=== PATIENT | male | born 1985 | race American Indian/Alaskan Native ===

== ENCOUNTER 2020-02-09 15:55 | Emergency (ER) | payer OTHER ==
--- NOTE | 2020-02-09 17:21 | Emergency Department Report ---
ED Abdominal Pain HPI - General Chief Complaint: Abdominal Pain Stated Complaint: N/V/D RT FLANK PAIN PUI?: Yes Time Seen by Provider: 02/09/20 17:14 Source: patient, EMS Mode of arrival: Ambulatory Limitations: No Limitations - History of Present Illness Initial Comments: Patient is a 34-year-old male that presents emergency room with complaints of nausea vomiting and abdominal pain. Patient states he has had abdominal pain and nausea vomiting for 10 days. Patient states today he developed right flank pain that was a 10 out of 10. Patient states the pain is worse with movement better with rest. Patient states 10 days ago he was diagnosed with COVID-19. Patient states he was tested at [facility]. Patient denies shortness of breath. Patient states he still having fevers at times. Patient complains of chills and body aches. Patient denies blood in his vomitus. Patient denies diarrhea and blood in his stool. Denies chest pain. MD Complaint: abdominal pain, flank pain -: Gradual Location: diffuse, R flank Radiation: none Migration to: no migration Severity: severe Severity scale (0 -10): 10 Quality: stabbing Consistency: intermittent Improves With: rest Worsens With: movement Associated Symptoms: nausea, vomiting, fever, chills. denies: diarrhea, constipation, dysuria, hematemesis, hematochezia, melena, hematuria, anorexia - Related Data Previous Rx's Medication Instructions Recorded Last Taken Type Azithromycin [Zithromax Tri-Ernie] 500 mg PO DAILY 3 Days #3 tablet 02/09/20 Unknown Rx Ondansetron [Zofran Odt] 4 mg PO Q4HR PRN #15 tab.rapdis 02/09/20 Unknown Rx methylPREDNISolone [Medrol 4MG 4 mg PO DAILY 6 Days #1 pack 02/09/20 Unknown Rx DOSEPAK (21 tabs)] Allergies Allergy/AdvReac Type Severity Reaction Status Date / Time No Known Allergies Allergy Unverified 02/09/20 17:24 ED Review of Systems ROS: Stated complaint: N/V/D RT FLANK PAIN Other details as noted in HPI Constitutional: chills, fever, malaise Eyes: denies: eye pain, eye discharge, vision change ENT: denies: ear pain, throat pain Respiratory: denies: cough, shortness of breath, wheezing Cardiovascular: denies: chest pain, palpitations Endocrine: no symptoms reported Gastrointestinal: abdominal pain, nausea, vomiting. denies: diarrhea Genitourinary: denies: urgency, dysuria Musculoskeletal: denies: back pain, joint swelling, arthralgia Skin: denies: rash, lesions Neurological: denies: headache, weakness, paresthesias Psychiatric: denies: anxiety, depression Hematological/Lymphatic: denies: easy bleeding, easy bruising ED Past Medical Hx - Past Medical History Previous Medical History?: No - Surgical History Past Surgical History?: No - Family History Family history: no significant - Social History Smoking Status: Never Smoker Substance Use Type: None - Medications Home Medications: Home Medications Medication Instructions Recorded Confirmed Last Taken Type Azithromycin [Zithromax Tri-Ernie] 500 mg PO DAILY 3 Days #3 tablet 02/09/20 Unknown Rx Ondansetron [Zofran Odt] 4 mg PO Q4HR PRN #15 tab.rapdis 02/09/20 Unknown Rx methylPREDNISolone [Medrol 4MG 4 mg PO DAILY 6 Days #1 pack 02/09/20 Unknown Rx DOSEPAK (21 tabs)] ED Physical Exam - General Limitations: No Limitations General appearance: alert, in no apparent distress - Head Head exam: Present: atraumatic, normocephalic - Eye Eye exam: Present: normal appearance - ENT ENT exam: Present: mucous membranes moist - Neck Neck exam: Present: normal inspection - Respiratory Respiratory exam: Present: normal lung sounds bilaterally. Absent: respiratory distress, wheezes, rales - Cardiovascular Cardiovascular Exam: Present: regular rate, normal rhythm. Absent: systolic murmur, diastolic murmur, rubs, gallop - GI/Abdominal GI/Abdominal exam: Present: soft, tenderness (Generalized abdominal tenderness. Right flank tenderness), normal bowel sounds - Rectal Rectal exam: Present: deferred - Extremities Exam Extremities exam: Present: normal inspection - Back Exam Back exam: Present: normal inspection - Neurological Exam Neurological exam: Present: alert, oriented X3 - Psychiatric Psychiatric exam: Present: normal affect, normal mood - Skin Skin exam: Present: warm, dry, intact, normal color. Absent: rash ED Course Vital Signs 02/09/20 02/09/20 02/09/20 16:49 20:39 20:45 Pulse Rate 110 H 99 H Respiratory 19 31 H 29 H Rate Blood Pressure 143/81 128/69 O2 Sat by Pulse 96 96 Oximetry 02/09/20 02/09/20 02/09/20 21:01 21:15 21:31 Pulse Rate 95 H 93 H 93 H Respiratory 27 H 29 H 24 Rate Blood Pressure 135/82 121/73 127/57 O2 Sat by Pulse 98 97 98 Oximetry - Reevaluation(s) Reevaluation #1: I ambulated the patient with a pulse ox and patient's saturations stayed stable at 97%. Patient was 98% prior to ambulation. Patient reconnected to the threat monitoring analyst. Patient states his pain is better. Patient states he is feeling a little bit better. Patient denies nausea and vomiting while in the ER. Patient will receive another liter of fluids and prepared for discharge. 02/09/20 20:15 Reevaluation #2: Patient states he is feeling much better. Patient is ready for discharge. I discussed all results and clinical findings with patient. I discussed plan of care with patient. Patient agrees with plan of care. Patient is stable for dis charge. Patient will be discharged home. Patient given discharge instructions. Patient voiced understanding of discharge instructions. 02/09/20 22:00 ED Medical Decision Making - Lab Data Result diagrams: 02/09/20 18:20 02/09/20 18:20 - Radiology Data Radiology results: report reviewed CT ABDOMEN AND PELVIS WITH CONTRAST HISTORY: Epigastric and right-sided abdominal pain COMPARISON: None TECHNIQUE: Routine abdominal and pelvic CT exam performed following intravenous contrast administration. The patient received 100 mL of IV Omnipaque 300. All CT scans at this location are performed using CT dose reduction for ALARA by means of automated exposure control. FINDINGS: CT ABDOMEN: Lung Bases: There are patchy groundglass opacities in both lower lungs. Liver: Decreased attenuation consistent with hepatic steatosis. Portable Biliary: No significant abnormality. Spleen: No significant abnormality. Unenlarged. Pancreas: No significant abnormality. Adrenals: No significant abnormality. Kidneys: No significant abnormality. Lymphatics: No lymphadenopathy. Vasculature: No significant abnormality. Bowel/Peritoneum: No significant abnormality. No free air. No free fluid. Normal appendix. CT PELVIC: : No significant abnormality. Lymphatics: No lymphadenopathy. Osseous Structures: No aggressive appearing osseous lesions. Additional Findings: None IMPRESSION: 1. Patchy groundglass opacities in both lower lungs that could indicate acute infectious or inflammatory process, possibly viral pneumonia. 2. Hepatic steatosis. 3. No acute findings in the abdomen and pelvis. - Medical Decision Making Patient is a 34-year-old male that presents emergency room with complaints of nausea vomiting abdominal pain. Patient previously diagnosed with COVID-19 10 days prior to arrival. Patient still has cough and some body aches but fever has resolved. Patient denies shortness of breath. Patient had labs done which were unremarkable. Patient given Zofran and fluids and responded well to treatment. Patient had a CT done which was negative for acute findings in the abdominal region but found to have bilateral viral pneumonia. Patient's pneumonia is consistent with COVID-19 infection. Patient will be given a Solu- Medrol pack and azithromycin and discharged home. Patient will need to continue to self quarantine for 14 days. Patient given Zofran. Patient denied having nausea vomiting in the ER and passed p.o. challenge. Patient also was ambulated in the ER and patient did not desat and maintained a good oxygenation while walking. Patient did not have any hypoxia the entire time in the ER. Patient is stable for discharge. Patient given discharge instructions. Patient discharged home. - Differential Diagnosis Gastroenteritis, nausea, abdominal pain, COVID-19, pneumonia Critical care attestation.: If time is entered above; I have spent that time in minutes in the direct care of this critically ill patient, excluding procedure time. ED Disposition Clinical Impression: COVID-19, Gastroenteritis, Viral pneumonia Nausea & vomiting Qualifiers: Vomiting type: unspecified Vomiting Intractability: non-intractable Qualified Code(s): R11.2 - Nausea with vomiting, unspecified Abdominal pain Qualifiers: Abdominal location: generalized Qualified Code(s): R10.84 - Generalized abdominal pain Pneumonia Qualifiers: Pneumonia type: due to unspecified organism Laterality: bilateral Lung location: unspecified part of lung Qualified Code(s): J18.9 - Pneumonia, unspecified organism Disposition: DC-01 TO HOME OR SELFCARE Is pt being admited?: No Does the pt Need Aspirin: No Condition: Stable Instructions: COVID-19, Traveler's Diarrhea (ED), Gastroenteritis (ED), Acute Nausea and Vomiting (ED), Bacterial Pneumonia (ED) Additional Instructions: Patient to follow-up with primary care in 2 to 3 days. Patient to follow-up with health department for further evaluation and treatment of COVID-19. Patient to self quarantine for 14 days. Patient to eat a brat diet. Patient to rest. Patient to increase water. Patient to take Tylenol as needed for pain. Patient to take meds as directed. Patient to return to the ER if condition worsens, changes or new symptoms arise. Prescriptions: methylPREDNISolone [Medrol 4MG DOSEPAK (21 tabs)] 4 mg PO DAILY 6 Days #1 pack Azithromycin [Zithromax Tri-Ernie] 500 mg PO DAILY 3 Days #3 tablet Ondansetron [Zofran Odt] 4 mg PO Q4HR PRN #15 tab.rapdis PRN Reason: Nausea And Vomiting Referrals: PRIMARY CARE,MD [Primary Care Provider] - 2-3 Days Time of Disposition: 22:00
[2020-02-09] MEDS ORDERED: SODIUM CHLORIDE 0.9% 1000 ML 1,000 ML IV ONE ×2 (17:23→20:24)
[2020-02-09] MEDS ORDERED: HYDROmorphone 1 MG/1 ML INJ IV ONE (17:23)
[2020-02-09] MEDS ORDERED: ONDANSETRON 4 MG/2 ML INJ IV ONE (17:23)
[2020-02-09 18:57] LABS: Basophils % (Auto) 0.3 % (0.0-1.8); Eosinophils % (Auto) 0.1 % (0.0-4.3); Hematocrit 46.3 % (35.5-45.6); Hemoglobin 15.1 gm/dl (11.8-15.2); Lymphocytes # (Auto) 0.8 K/mm3 (1.2-5.4); Lymphocytes % (Auto) 9.3 % (13.4-35.0); Mean Corpuscular HGB Conc 33 % (32-34); Mean Corpuscular Volume 81 fl (84-94); Monocytes # (Auto) 0.8 K/mm3 (0.0-0.8); Monocytes % (Auto) 9.5 % (0.0-7.3); Platelet Count 407 K/mm3 (140-440); Red Blood Count 5.72 M/mm3 (3.65-5.03); Red Cell Distribution Width 14.7 % (13.2-15.2)
[2020-02-09 19:23] LABS: Alanine Aminotransferase 72 units/L (7-56); Albumin 3.9 g/dL (3.9-5); BUN/Creatinine Ratio 16; Blood Urea Nitrogen 14 mg/dL (9-20); Calcium 9.3 mg/dL (8.4-10.2); Hemolysis Index 3
[2020-02-09 19:24] LABS: Bilirubin,Direct < 0.2 mg/dL (0-0.2)
--- NOTE | 2020-02-09 19:54 | Cat Scan Report ---
CT ABDOMEN AND PELVIS WITH CONTRAST HISTORY: Epigastric and right-sided abdominal pain COMPARISON: None TECHNIQUE: Routine abdominal and pelvic CT exam performed following intravenous contrast administrat ion. The patient received 100 mL of IV Omnipaque 300. All CT scans at this location are performed usi ng CT dose reduction for ALARA by means of automated exposure control. FINDINGS: CT ABDOMEN: Lung Bases: There are patchy groundglass opacities in both lower lungs. Liver: Decreased attenuation consistent with hepatic steatosis. Portable Biliary: No significant abnormality. Spleen: No significant abnormality. Unenlarged. Pancreas: No significant abnormality. Adrenals: No significant abnormality. Kidneys: No significant abnormality. Lymphatics: No lymphadenopathy. Vasculature: No significant abnormality. Bowel/Peritoneum: No significant abnormality. No free air. No free fluid. Normal appendix. CT PELVIC: : No significant abnormality. Lymphatics: No lymphadenopathy. Osseous Structures: No aggressive appearing osseous lesions. Additional Findings: None IMPRESSION: 1. Patchy groundglass opacities in both lower lungs that could indicate acute infectious or inflammat ory process, possibly viral pneumonia. 2. Hepatic steatosis. 3. No acute findings in the abdomen and pelvis. Signer Name: Duane Friedman MD Signed: 02/09/2020 7:49 PM Workstation Name: [id number]
[2020-02-09 21:35] LABS: Bacteria,Urine 1+ /HPF (Negative); Bilirubin,Urine NEG (Negative); Blood,Urine NEG (Negative); Color,Urine Yellow (Yellow); Mucus,Urine 2+ /HPF
[2020-02-09 22:56] VITALS: BP 100/49
== END 2020-02-09 22:35 | disposition home or self-care (01) ==
LOC: ED 15:55
DX: K21.9 Gastro-esophageal reflux disease without esophagitis (principal); J18.9 Pneumonia, unspecified organism; U07.1 COVID-19; Z79.899 Other long term (current) drug therapy
CPT/HCPCS: 36415; 74177; 80048; 80076; 81001; 85025; 96361; 96374; 96375; 99285; J1170; J2405; J7030; Q9967

== ENCOUNTER 2021-04-01 16:41 | Emergency (ER) | payer OTHER ==
[2021-04-01 21:08] VITALS: BP 145/86
--- NOTE | 2021-04-01 21:23 | Emergency Department Report ---
ED Anxiety HPI - General Chief Complaint: Anxiety Stated Complaint: PANIC ATTACK Time Seen by Provider: 04/01/21 21:11 Source: patient Mode of arrival: Ambulatory - History of Present Illness Initial Comments: Patient is a 35-year-old male presents emergency room with complaints of intermittent episodes of anxiety and panic attacks over the last 2 weeks. Patient states that he has had anxiety for several years now. He states he previously used to see a psychiatrist. He states he has not seen a psychiatrist in approximately a year. He states a year ago he used to take Ativan as needed. He states whenever he has his panic attacks he begins to feel overwhelmed, tingling all over, increase in his breathing. He denies any symptoms at all currently. He is currently asymptomatic. He denies any SI, HI, hallucinations. He also has a past medical history of hypertension. No allergies to medications. He states also occasionally at night he has some difficulty with s leeping. Patient states that he has 25 mg of Atarax at home but states that it has not been helping very much. - Related Data Home Medications: Previous Rx's Medication Instructions Recorded Last Taken Type Azithromycin [Zithromax Tri-Ernie] 500 mg PO DAILY 3 Days #3 tablet 02/09/20 Unknown Rx Ondansetron [Zofran Odt] 4 mg PO Q4HR PRN #15 tab.rapdis 02/09/20 Unknown Rx methylPREDNISolone [Medrol 4MG 4 mg PO DAILY 6 Days #1 pack 02/09/20 Unknown Rx DOSEPAK (21 tabs)] Allergies/Adverse Reactions: Allergies Allergy/AdvReac Type Severity Reaction Status Date / Time No Known Allergies Allergy Unverified 02/09/20 17:24 ED Review of Systems ROS: Stated complaint: PANIC ATTACK Other details as noted in HPI Comment: All other systems reviewed and negative ED Past Medical Hx - Past Medical History Previous Medical History?: Yes Hx Psychiatric Treatment: Yes (Anxiety, panic attacks) - Surgical History Past Surgical History?: No - Social History Smoking Status: Never Smoker Substance Use Type: None - Medications Home Medications: Home Medications Medication Instructions Recorded Confirmed Last Taken Type Azithromycin [Zithromax Tri-Ernie] 500 mg PO DAILY 3 Days #3 tablet 02/09/20 Unkn own Rx Ondansetron [Zofran Odt] 4 mg PO Q4HR PRN #15 tab.rapdis 02/09/20 Unknown Rx methylPREDNISolone [Medrol 4MG 4 mg PO DAILY 6 Days #1 pack 02/09/20 Unknown Rx DOSEPAK (21 tabs)] ED Physical Exam - General Limitations: No Limitations General appearance: alert, in no apparent distress - Head Head exam: Present: atraumatic, normocephalic - Eye Eye exam: Present: normal appearance - ENT ENT exam: Present: mucous membranes moist - Respiratory Respiratory exam: Present: normal lung sounds bilaterally. Absent: respiratory distress, wheezes, rales, rhonchi, stridor, chest wall tenderness, accessory muscle use, decreased breath sounds, prolonged expiratory - Cardiovascular Cardiovascular Exam: Present: regular rate, normal rhythm, normal heart sounds. Absent: systolic murmur, diastolic murmur, rubs, gallop - Neurological Exam Neurological exam: Present: alert, oriented X3 - Psychiatric Psychiatric exam: Present: normal affect, normal mood - Skin Skin exam: Present: warm, dry, intact ED Course Vital Signs 04/01/21 21:07 Temperature 98.5 F Pulse Rate 75 Respiratory 18 Rate Blood Pressure 145/86 O2 Sat by Pulse 97 Oximetry ED Medical Decision Making - Medical Decision Making Patient is a 35-year-old male presents emergency room with complaints of intermittent episodes of anxiety and panic attacks over the last 2 weeks. Patient states that he has had anxiety for several years now. He states he previously used to see a psychiatrist. He states he has not seen a psychiatrist in approximately a year. He states a year ago he used to take Ativan as needed. He states whenever he has his panic attacks he begins to feel overwhelmed, tingling all over, increase in his breathing. He denies any symptoms at all currently. He is currently asymptomatic. He denies any SI, HI, hallucinations. He also has a past medical history of hypertension. No allergies to medications. He states also occasionally at night he has some difficulty with sleeping. Patient states that he has 25 mg of Atarax at home but states that it has not been helping very much. Vitals are stable. No abnormality on physical examination as documented in chart. Patient has no clinical signs of acute psychosis at this time. He adamantly denies any SI or HI. Patient will be referred to outpatient mental health. Patient given a list of multiple resources in his discharge packet. Advised patient You may increase your Atarax/hydroxyzine dose to 50 mg as needed for anxiety. Please practice healthy coping mechanisms for your anxiety such as meditating, breathing exercises, exercise, watching videos, etc. Please follow-up with outpatient mental health, you were given several resources. Return to emergency room immediately for any new or worsening symptoms or if began feeling thoughts of wanting to hurt yourself or others. May use [id number] sleep aid to help to sleep at night such as Unisom or melatonin. Critical care attestation.: If time is entered above; I have spent that time in minutes in the direct care of this critically ill patient, excluding procedure time. ED Disposition Clinical Impression: Anxiety Disposition: 01 HOME / SELF CARE / HOMELESS Is pt being admited?: No Does the pt Need Aspirin: No Condition: Stable Instructions: Managing Anxiety, Adult Additional Instructions: You may increase your Atarax/hydroxyzine dose to 50 mg as needed for anxiety. Please practice healthy coping mechanisms for your anxiety such as meditating, breathing exercises, exercise, watching videos, etc. Please follow-up with outpatient mental health, you were given several resources. Return to emergency room immediately for any new or worsening symptoms or if began feeling thoughts of wanting to hurt yourself or others. May use [id number] sleep aid to help to sleep at night such as Unisom or melatonin. Referrals: [facility] [Outside] - 2-3 Days Time of Disposition: 21:21 Print Language: SPANISH
== END 2021-04-01 21:23 | disposition home or self-care (01) ==
LOC: ED 16:41
DX: F41.8 Other specified anxiety disorders (principal); F41.0 Panic disorder [episodic paroxysmal anxiety]
CPT/HCPCS: 99281

== ENCOUNTER 2022-01-01 20:47 | Emergency (ER) | payer SELFPAY | END 2022-01-01 20:50 | disposition left against medical advice (07) | LOC: ED 20:47 | DX: M79.602 Pain in left arm (principal); Z53.21 Procedure and treatment not carried out due to patient leaving prior to being seen by health care provider ==